=== PATIENT | female | born 1960 | race African-American/Black ===

== ENCOUNTER → 2018-07-22 | Outpatient (CLI) | payer BC ==
--- NOTE | 2018-07-22 15:22 | KCIC ---
HAND BILAT 3V History: Polyarthralgia. Mild degenerative changes at the interphalangeal joints bilaterally. No erosive changes are seen. No evidence of acute fracture or aggressive bone destruction. Soft tissue planes appear intact. IMPRESSION: Mild degenerative changes of the interphalangeal joints bilaterally. Electronically signed by: Martin Mitchell MD (07/22/2018 3:19 PM) [id number]
== END | disposition home or self-care (01) ==
LOC: KCIC 11:15
PROVIDERS: ATTEND Internal Medicine Rheumatology
DX: M19.042 Primary osteoarthritis, left hand (principal); M19.041 Primary osteoarthritis, right hand
CPT/HCPCS: 73130